=== PATIENT | female | born 1945 | race Caucasian/White ===

== ENCOUNTER → 2020-06-10 | Outpatient (CLI) | payer MEDICARE, OTHER ==
--- NOTE | 2020-06-10 13:51 | DEXAMM ---
INDICATION: M81.0 OSTEOPOROSIS. Status post left hip pinning. COMPARISON: None. TECHNIQUE: Bone density was measured using dual-energy x-ray absorptionmetry (DEXA). FINDINGS: AP SPINE L1-L4 BMD 1.242 g/cm2 Young Adult T-Score 0.4 Age Matched Z-Score 2.2. RT FEMUR, TOTAL BMD 0.725 g/cm2 Young Adult T-Score -2.2 Age Matched Z-Score -0.5. RT NECK BMD 0.737 g/cm2 Young Adult T-Score -2.2 Age Matched Z-Score -0.2. IMPRESSION: There is normal bone density of the spine. There is low bone density of the right hip. FOLLOW-UP: Recommendation for the next bone density exam: 2 years. <Electronically signed by Tavares Valdez > 06/10/20 [id number]
== END ==
LOC: M WHC 12:35
PROVIDERS: ATTEND Internal Medicine
DX: M81.0 Age-related osteoporosis without current pathological fracture (principal)

== ENCOUNTER → 2020-06-10 | Outpatient (CLI) | payer MEDICARE, OTHER ==
--- NOTE | 2020-06-10 14:19 | REPPI ---
INDICATION: UNDIFFERENTIATED INFLAMMATOR ARTHRITIS COMPARISON: None. TECHNIQUE: AP, lateral, bilateral oblique views right and left hand. FINDINGS: Both hands demonstrate moderate osteopenia and mild to moderate osteoarthritic changes with minimal periarticular sclerosis and joint space narrowing at the interphalangeal joints as well as moderate arthritic changes to the wrist including increased sclerosis, osteophytosis and chronic mild subluxation at the 1st carpometacarpal joint as well as increased sclerosis along the radiocarpal surface. Mild soft tissue swelling at the DIP joints (right greater than left) noted without periarticular calcifications or erosive changes. Evidence for peripheral vascular disease noted. IMPRESSION: Osteopenia and arthritic changes as described above. <Electronically signed by Olegario Lopez > 06/10/20 [id number]
--- NOTE | 2020-06-10 14:22 | REPPI ---
INDICATION: UNDIFFERENTIATED INFLAMMATOR ARTHRITIS COMPARISON: None. TECHNIQUE: AP, lateral, bilateral oblique views right and left wrist. FINDINGS: Right wrist demonstrates age-related osteopenia along with increased sclerosis along the radial surface and minimal joint space narrowing. Subtle cortical irregularity and mild chondrocalcinosis at the 1st carpometacarpal joint with periarticular sclerosis and joint space narrowing noted. Evidence for peripheral vascular disease. Left wrist demonstrates age-related osteopenia along with moderate sclerosis at the 1st carpometacarpal joint with cortical irregularity, small osteophytes, chondrocalcinosis. Increased sclerosis and minimal joint space narrowing at the radiocarpal joint line is also identified. Evidence for peripheral vascular disease. IMPRESSION: Osteopenia and moderate relatively symmetric bilateral osteoarthritic degenerative changes. <Electronically signed by Olegario Lopez > 06/10/20 [id number]
--- NOTE | 2020-06-10 14:23 | REPPI ---
INDICATION: UNDIFFERENTIATED INFLAMMATOR ARTHRITIS COMPARISON: None. TECHNIQUE: AP, lateral, bilateral oblique views. FINDINGS: Right ankle demonstrates age-related osteopenia and generalized age-related arthritic changes. Ankle mortise intact. No acute fracture or dislocation. Lateral view demonstrates small calcaneal heel spur. Evidence for peripheral vascular disease noted. Left ankle demonstrates age-related osteopenia and generalized age-related arthritic changes. Ankle mortise intact. No acute fracture or dislocation. Lateral view demonstrates small calcaneal heel spur. Evidence for peripheral vascular disease noted. IMPRESSION: Age-related osteopenia and relatively symmetric age-related degenerative changes. <Electronically signed by Olegario Lopez > 06/10/20 1920
--- NOTE | 2020-06-10 14:25 | REPPI ---
INDICATION: UNDIFFERENTIATED INFLAMMATOR ARTHRITIS COMPARISON: None. TECHNIQUE: AP, lateral, bilateral oblique views right and left foot. FINDINGS: Right foot demonstrates osteopenia and generalized osteoarthritic degenerative changes along with peripheral vascular disease. Small calcaneal heel spur. No evidence for acute or healed injury. Left foot demonstrates osteopenia and generalized osteoarthritic degenerative changes along with peripheral vascular disease. Small calcaneal heel spur. No evidence for acute or healed injury. IMPRESSION: Symmetric age-related osteopenia and generalized age-related osteoarthritic changes. <Electronically signed by Olegario Lopez > 06/10/20 [id number]
== END ==
LOC: M PLAIMG 13:03
PROVIDERS: ATTEND Internal Medicine
DX: M85.871 Other specified disorders of bone density and structure, right ankle and foot (principal); M85.872 Other specified disorders of bone density and structure, left ankle and foot; M77.31 Calcaneal spur, right foot; M77.32 Calcaneal spur, left foot; M85.841 Other specified disorders of bone density and structure, right hand; M85.842 Other specified disorders of bone density and structure, left hand; M85.88 Other specified disorders of bone density and structure, other site; M06.4 Inflammatory polyarthropathy; M81.0 Age-related osteoporosis without current pathological fracture; R76.8 Other specified abnormal immunological findings in serum; H04.123 Dry eye syndrome of bilateral lacrimal glands; Z11.59 Encounter for screening for other viral diseases

== ENCOUNTER → 2020-06-10 | Outpatient (REF) | payer MEDICARE, OTHER ==
[2020-06-10 15:40] LABS: BASO % 0.5 % (0.0-1.0); EOS # 0.2 10^3/uL (0.0-0.5); EOS % 1.8 % (0.0-3.0); HEMATOCRIT 47.4 % (36.0-47.0); HEMOGLOBIN 14.8 g/dl (12.0-15.5); LYMPH # 1.4 10^3/uL (1.5-5.0); LYMPH % 17.1 % (24.0-44.0); MEAN CORPUSCULAR HGB CONC 31.2 g/dl (32.0-36.5); MONO # 0.6 10^3/uL (0.0-0.8); MONO % 6.8 % (0.0-5.0); NEUTROPHILS # 6.1 10^3/uL (1.5-8.5); NEUTROPHILS % 73.4 % (36.0-66.0); PLATELET COUNT, AUTOMATED 230 10^3/uL (150-450); RED BLOOD COUNT 4.94 10^6/uL (4.00-5.40); WHITE BLOOD COUNT 8.3 10^3/uL (4.0-10.0)
[2020-06-10 15:50] LABS: APPEARANCE, URINE HAZY (CLEAR); BACTERIA, URINE AUTO NEGATIVE (NEGATIVE); BILIRUBIN, URINE AUTO NEGATIVE (NEGATIVE); BLOOD, URINE BLOOD 1+ (NEGATIVE); COLOR, URINE STRAW (YELLOW); GLUCOSE, URINE (UA) AUTO 3+ mg/dL (NEGATIVE); KETONE, URINE AUTO NEGATIVE (NEGATIVE); LEUKOCYTE ESTERASE, URINE AUTO 3+ (NEGATIVE); MUCUS, URINE SMALL (NEGATIVE); NITRITE, URINE AUTO NEGATIVE (NEGATIVE); PROTEIN, URINE AUTO NEGATIVE (NEGATIVE); RBC, URINE AUTO 2 /HPF (0-3); SPECIFIC GRAVITY URINE AUTO 1.011 (1.002-1.035); SQUAMOUS EPITHELIAL CELL UR AU 1 /HPF (0-6); UROBILINOGEN, URINE AUTO 0.2 mg/dL (0.0-2.0); WBC, URINE AUTO 107 /HPF (0-3)
[2020-06-10 16:19] LABS: ERYTHROCYTE SEDIMENTATION RATE 10 mm/hr (0-30)
[2020-06-10 16:22] LABS: CREATININE,RANDOM URINE 18.1 MG/DL
[2020-06-10 16:52] LABS: ALBUMIN 3.7 GM/DL (3.2-5.2); ALT/SGPT 31 U/L (12-78); BILIRUBIN,DIRECT 0.2 MG/DL (0.0-0.2); BILIRUBIN,TOTAL 0.7 MG/DL (0.2-1.0); BLOOD UREA NITROGEN 15 MG/DL (7-18); CALCIUM LEVEL 9.6 MG/DL (8.8-10.2); CARBON DIOXIDE LEVEL 31 MEQ/L (21-32); CHLORIDE LEVEL 106 MEQ/L (98-107); COMPLEMENT C3 149 MG/DL (90-180); COMPLEMENT C4 29 MG/DL (10-40); CPK CREATINE PHOSPHOKINASE 96 U/L (26-192); CREATININE FOR GFR 0.65 MG/DL (0.55-1.30); GLOMERULAR FILTRATION RATE > 60.0 (>39); GLUCOSE, FASTING 155 MG/DL (70-100); POTASSIUM SERUM 4.1 MEQ/L (3.5-5.1); RHEUMATOID FACTOR QUANT < 10.0 IU/ML (<15.0); SODIUM LEVEL 140 MEQ/L (136-145); URIC ACID 4.7 MG/DL (2.6-6.0)
[2020-06-10 16:53] LABS: HEPATITIS B SURFACE ANTIBODY NEGATIVE (POSITIVE)
[2020-06-10 17:03] LABS: HEPATITIS B SURFACE ANTIGEN NEGATIVE (NEGATIVE)
[2020-06-10 17:33] LABS: HEPATITIS C VIRUS ABY INDEX 0.1 INDEX (<0.8)
== END ==
LOC: M SFHCRHEU 13:03
PROVIDERS: ATTEND Internal Medicine
DX: R76.8 Other specified abnormal immunological findings in serum (principal); H04.123 Dry eye syndrome of bilateral lacrimal glands; M06.4 Inflammatory polyarthropathy; Z11.59 Encounter for screening for other viral diseases

== ENCOUNTER → 2020-07-28 | Outpatient (REF) | payer MEDICARE, OTHER ==
[2020-07-28 18:01] LABS: CALCIUM LEVEL 9.9 MG/DL (8.8-10.2); MAGNESIUM LEVEL 2.1 MG/DL (1.8-2.4); PHOSPHORUS LEVEL 4.2 MG/DL (2.5-4.9)
[2020-07-28 18:12] LABS: PTH INTACT 46.1 PG/ML (18.5-88.0)
== END ==
LOC: M SFHCRHEU 13:19
PROVIDERS: ATTEND Internal Medicine
DX: M11.20 Other chondrocalcinosis, unspecified site (principal); M81.0 Age-related osteoporosis without current pathological fracture; Z79.899 Other long term (current) drug therapy
CPT/HCPCS: 82310; 82523; 83540; 83735; 83970; 84100; G0463; G0480

== ENCOUNTER 2022-08-03 16:49 | Inpatient (IN) | payer MEDICARE, OTHER ==
[~2022-08-03] VITALS: Ht 149.9 cm; Wt 74.6 kg
[2022-08-03 19:05] VITALS: BP 142/77
[2022-08-03 19:32] LABS: BASO % 0.2 % (0.0-1.0); EOS # 0.1 10^3/uL (0.0-0.5); EOS % 0.6 % (0.0-3.0); HEMATOCRIT 34.9 % (36.0-47.0); HEMOGLOBIN 11.1 g/dl (12.0-15.5); LYMPH # 1.1 10^3/uL (1.5-5.0); LYMPH % 10.3 % (24.0-44.0); MEAN CORPUSCULAR HEMOGLOBIN 28.2 pg (27.0-33.0); MEAN CORPUSCULAR HGB CONC 31.8 g/dl (32.0-36.5); MEAN CORPUSCULAR VOLUME 88.6 fl (80.0-96.0); MONO # 1.1 10^3/uL (0.0-0.8); NEUTROPHILS # 7.9 10^3/uL (1.5-8.5); NEUTROPHILS % 77.6 % (36.0-66.0); PLATELET COUNT, AUTOMATED 252 10^3/uL (150-450); RED BLOOD COUNT 3.94 10^6/uL (4.00-5.40); WHITE BLOOD COUNT 10.2 10^3/uL (4.0-10.0)
[2022-08-03] MEDS: traMADol 50 MG TAB PO PRN (19:40)
[2022-08-03 19:47] LABS: INR 1.13; PROTHROMBIN TIME 14.7 SECONDS (12.5-14.5)
[2022-08-03 19:58] LABS: CPK CREATINE PHOSPHOKINASE 224 U/L (34-145)
[2022-08-03] MEDS ORDERED: NS 1,000 ML IV SCH (20:00)
[2022-08-03 20:03] LABS: ALBUMIN 3.1 G/DL (3.2-5.2); ALKALINE PHOSPHATASE 64 U/L (46-116); ALT/SGPT 26 U/L (7.0-40); AST/SGOT 28 U/L (<34); BILIRUBIN,TOTAL 0.5 MG/DL (0.3-1.2); BLOOD UREA NITROGEN 20 MG/DL (9-23); CALCIUM LEVEL 9.4 MG/DL (8.3-10.6); CARBON DIOXIDE LEVEL 25 MMOL/L (20-31); CHLORIDE LEVEL 103 MMOL/L (98-107); CREATININE FOR GFR 0.91 MG/DL (0.55-1.30); GLOMERULAR FILTRATION RATE > 60.0 (>39); GLUCOSE, FASTING 61 MG/DL (74-106); MB/CK RELATIVE INDEX 0.89 (< OR =4); POTASSIUM SERUM 3.7 MMOL/L (3.5-5.1); SODIUM LEVEL 137 MMOL/L (136-145); TOTAL PROTEIN 6.6 G/DL (5.7-8.2)
[2022-08-03] MEDS ORDERED: MIRALAX *UNIT DOSE* 17GM PACKET PO PRN (20:45)
[2022-08-03] MEDS ORDERED: GLUCAGON INJ 1MG VIAL SC PRN (20:45)
[2022-08-03] MEDS ORDERED: GLUCOSE 4GM CHEW TABLET PO PRN (20:45)
[2022-08-03] MEDS ORDERED: DEXTROSE 50% 50ML SYRINGE IV PRN (20:45)
[2022-08-03] MEDS: INSULIN LISPRO (NovoLOG) PER UNIT SC SCH (21:00)
[2022-08-03 21:32] VITALS: BP 141/55
[2022-08-03] MEDS ORDERED: HYDR200T3 PO (21:33)
[2022-08-03] MEDS ORDERED: OYST500T12 PO (21:33)
[2022-08-03] MEDS ORDERED: JARD1TAB3 PO (21:33)
[2022-08-03] MEDS ORDERED: LEXA1TAB PO (21:33)
[2022-08-03] MEDS ORDERED: D 50CAP2 PO (21:33)
[2022-08-03] MEDS ORDERED: DARI7.5T11 PO (21:33)
[2022-08-03] MEDS ORDERED: SIMV20TA22 PO (21:33)
[2022-08-03] MEDS ORDERED: XALA0.007 OU (21:33)
[2022-08-03] MEDS ORDERED: LOSA50TA28 PO (21:33)
[2022-08-03] MEDS ORDERED: LANTINJ4 INJ (21:33)
[2022-08-03] MEDS ORDERED: ACID1TAB PO (21:34)
[2022-08-03] MEDS ORDERED: VITAE40CA PO (21:34)
[2022-08-03] MEDS ORDERED: ASPI325T49 PO (21:34)
[2022-08-03] MEDS ORDERED: MICR1TAB5 PO (21:35)
[2022-08-03] MEDS ORDERED: HOME MED LIST COMPLETE! XX SCH (21:40)
[2022-08-03] MEDS ORDERED: BUPIVACAINE HCL 0.25% 10ML VIAL SC ONE (22:00)
[2022-08-03] MEDS ORDERED: LIDOCAINE 1% SDV 5ML VIAL SC ONE (22:00)
[2022-08-03] MEDS: HYDROXYCHLOROQUINE 200 MG TAB PO SCH (23:22)
[2022-08-03] MEDS: SIMVASTATIN 20 MG TAB PO SCH (23:22)
[2022-08-03] MEDS: LATANOPROST 0.005% OPHTH SOLN 2.5 ML OU SCH (23:23)
[2022-08-03] MEDS ORDERED: LOSARTAN 50MG TABLET PO ONE (23:40)
[2022-08-04] MEDS: oxyBUTYnin *DITROPAN XL* 5 MG TABCR PO SCH ×2 (00:06→20:12)
[2022-08-04] MEDS: traMADol 50 MG TAB PO PRN ×5 (00:42→22:57)
[2022-08-04 06:00] VITALS: BP 139/56
[2022-08-04] MEDS ORDERED: FOSFOMYCIN TROMETHAMINE 3 GM POWDER PACKET (MONUROL) PO ONE (06:00)
[2022-08-04 07:53] LABS: BASO % 0.3 % (0.0-1.0); EOS # 0.2 10^3/uL (0.0-0.5); EOS % 2.3 % (0.0-3.0); HEMATOCRIT 33.5 % (36.0-47.0); HEMOGLOBIN 10.4 g/dl (12.0-15.5); LYMPH % 12.9 % (24.0-44.0); MEAN CORPUSCULAR HEMOGLOBIN 27.9 pg (27.0-33.0); MEAN CORPUSCULAR VOLUME 89.8 fl (80.0-96.0); MONO # 1.1 10^3/uL (0.0-0.8); MONO % 13.9 % (2.0-8.0); NEUTROPHILS # 5.5 10^3/uL (1.5-8.5); NEUTROPHILS % 70.1 % (36.0-66.0); PLATELET COUNT, AUTOMATED 231 10^3/uL (150-450); RED BLOOD COUNT 3.73 10^6/uL (4.00-5.40); WHITE BLOOD COUNT 7.9 10^3/uL (4.0-10.0)
[2022-08-04] MEDS ORDERED: RAMELTEON 8 MG TAB (ROZEREM) PO PRN (08:25)
[2022-08-04] MEDS: HYDROXYCHLOROQUINE 200 MG TAB PO SCH ×2 (08:52→20:12)
[2022-08-04] MEDS: ESCITALOPRAM OXALATE 10 MG TAB (LEXAPRO) PO SCH (08:53)
[2022-08-04] MEDS: LOSARTAN 50MG TABLET PO SCH (08:57)
[2022-08-04] MEDS: NYSTATIN 100,000 UNITS/GM TOPICAL PWD 15GM TOP SCH ×2 (08:59→20:13)
[2022-08-04] MEDS: INSULIN LISPRO (NovoLOG) PER UNIT SC SCH ×4 (08:59→20:12)
[2022-08-04 13:59] VITALS: BP 121/56
[2022-08-04] MEDS: SIMVASTATIN 20 MG TAB PO SCH (20:12)
[2022-08-04] MEDS: ACETAMINOPHEN TAB 650MG DOSE (2X325MG) PO PRN (20:12)
[2022-08-04] MEDS: LATANOPROST 0.005% OPHTH SOLN 2.5 ML OU SCH (20:13)
[2022-08-04 22:00] VITALS: BP 122/56
[2022-08-05] VITALS (8 sets, daily range): BP systolic 116–138; BP diastolic 51–61
[2022-08-05] MEDS: ACETAMINOPHEN TAB 650MG DOSE (2X325MG) PO PRN (00:50)
[2022-08-05 06:38] LABS: BASO % 0.4 % (0.0-1.0); EOS # 0.3 10^3/uL (0.0-0.5); EOS % 4.5 % (0.0-3.0); HEMATOCRIT 31.1 % (36.0-47.0); HEMOGLOBIN 9.7 g/dl (12.0-15.5); LYMPH # 1.2 10^3/uL (1.5-5.0); LYMPH % 17.1 % (24.0-44.0); MEAN CORPUSCULAR HEMOGLOBIN 27.8 pg (27.0-33.0); MEAN CORPUSCULAR HGB CONC 31.2 g/dl (32.0-36.5); MEAN CORPUSCULAR VOLUME 89.1 fl (80.0-96.0); MONO # 1.1 10^3/uL (0.0-0.8); MONO % 15.7 % (2.0-8.0); NEUTROPHILS # 4.2 10^3/uL (1.5-8.5); NEUTROPHILS % 61.9 % (36.0-66.0); PLATELET COUNT, AUTOMATED 226 10^3/uL (150-450); RED BLOOD COUNT 3.49 10^6/uL (4.00-5.40); WHITE BLOOD COUNT 6.8 10^3/uL (4.0-10.0)
[2022-08-05 07:06] LABS: CPK CREATINE PHOSPHOKINASE 205 U/L (34-145)
[2022-08-05 07:08] LABS: ALBUMIN 2.6 G/DL (3.2-5.2); ALKALINE PHOSPHATASE 58 U/L (46-116); ALT/SGPT 24 U/L (7.0-40); AST/SGOT 23 U/L (<34); BILIRUBIN,TOTAL 0.5 MG/DL (0.3-1.2); BLOOD UREA NITROGEN 21 MG/DL (9-23); CALCIUM LEVEL 8.2 MG/DL (8.3-10.6); CARBON DIOXIDE LEVEL 25 MMOL/L (20-31); CHLORIDE LEVEL 102 MMOL/L (98-107); CREATININE FOR GFR 0.81 MG/DL (0.55-1.30); GLOMERULAR FILTRATION RATE > 60.0 (>39); GLUCOSE, FASTING 121 MG/DL (74-106); MAGNESIUM LEVEL 1.7 MG/DL (1.8-2.4); POTASSIUM SERUM 3.9 MMOL/L (3.5-5.1); SODIUM LEVEL 135 MMOL/L (136-145); TOTAL PROTEIN 5.7 G/DL (5.7-8.2)
[2022-08-05] MEDS: INSULIN LISPRO (NovoLOG) PER UNIT SC SCH ×4 (07:30→21:14)
[2022-08-05] MEDS ORDERED: propofoL 200 MG/20 ML VIAL As Ordered ONE (08:18)
[2022-08-05] MEDS ORDERED: MIDAZOLAM INJ 2MG/2ML VIAL As Ordered ONE (08:18)
[2022-08-05] MEDS ORDERED: fentaNYL 100 MCG/2 ML INJECTION As Ordered ONE (08:18)
[2022-08-05] MEDS ORDERED: ONDANSETRON 4MG 2ML VIAL As Ordered ONE (08:18)
[2022-08-05] MEDS ORDERED: LIDOCAINE 2% 100MG/5ML SDV (FOR ANES.) As Ordered ONE (08:18)
[2022-08-05] MEDS ORDERED: ROPIvacaine 0.5% 30ML VIAL As Ordered ONE (08:23)
[2022-08-05] MEDS ORDERED: ROPIvacaine 0.5% 30ML VIAL PN ONE (08:25)
[2022-08-05] MEDS ORDERED: MIDAZOLAM INJ 2MG/2ML VIAL IV PRN (08:25)
[2022-08-05] MEDS ORDERED: LIDOCAINE 1% SDV 5ML VIAL PN ONE (08:25)
[2022-08-05] MEDS ORDERED: fentaNYL 100 MCG/2 ML INJECTION IV PRN ×2 (08:25→11:30)
[2022-08-05] MEDS ORDERED: ROCURONIUM BROMIDE 50MG/5ML VIAL As Ordered ONE (08:34)
[2022-08-05] MEDS ORDERED: SUGAMMADEX SODIUM 500 MG/5 ML VIAL (BRIDION) As Ordered ONE (08:34)
[2022-08-05] MEDS ORDERED: ceFAZolin 2 GM/D5W 50 ML IV BAG As Ordered ONE (08:36)
[2022-08-05] MEDS ORDERED: TRANEXAMIC ACID 100 MG/ML 10ML VIAL As Ordered ONE (08:36)
[2022-08-05] MEDS ORDERED: ACETAMINOPHEN 1000MG 100ML IV BAG As Ordered ONE (09:58)
[2022-08-05] MEDS ORDERED: LR 1,000 ML IV SCH (11:30)
[2022-08-05] MEDS ORDERED: ONDANSETRON 4MG 2ML VIAL IV PRN (11:30)
[2022-08-05] MEDS ORDERED: oxyCODONE 5MG TAB PO PRN (11:30)
[2022-08-05] MEDS ORDERED: HYDROMORPHONE HCL 0.5 MG/ 0.5 ML SYRINGE IV PRN (11:30)
[2022-08-05] MEDS: ESCITALOPRAM OXALATE 10 MG TAB (LEXAPRO) PO SCH (12:54)
[2022-08-05] MEDS: LOSARTAN 50MG TABLET PO SCH (12:56)
[2022-08-05] MEDS: NYSTATIN 100,000 UNITS/GM TOPICAL PWD 15GM TOP SCH ×2 (12:56→21:14)
[2022-08-05] MEDS: HYDROXYCHLOROQUINE 200 MG TAB PO SCH ×2 (12:56→21:13)
[2022-08-05] MEDS ORDERED: MAGNESIUM OXIDE 400MG TAB (MAG-OX) PO ONE (13:15)
[2022-08-05] MEDS: ceFAZolin SOD 2 GM in IV 1 EA IV SCH (17:14)
[2022-08-05] MEDS: SIMVASTATIN 20 MG TAB PO SCH (21:13)
[2022-08-05] MEDS: oxyBUTYnin *DITROPAN XL* 5 MG TABCR PO SCH (21:13)
[2022-08-05] MEDS: LATANOPROST 0.005% OPHTH SOLN 2.5 ML OU SCH (21:15)
[2022-08-06] MEDS: ceFAZolin SOD 2 GM in IV 1 EA IV SCH ×2 (01:31→08:06)
[2022-08-06 02:00] VITALS: BP 134/55
[2022-08-06] MEDS ORDERED: FLUTICASONE PROP 0.05% NASAL SPRAY 16 GM (FLONASE) NARES PRN (02:05)
[2022-08-06] MEDS: guaiFENesin ER 600 MG TAB PO PRN ×2 (02:20→14:04)
[2022-08-06 06:00] VITALS: BP 121/50
[2022-08-06 06:41] LABS: BASO % 0.1 % (0.0-1.0); HEMATOCRIT 31.9 % (36.0-47.0); HEMOGLOBIN 9.9 g/dl (12.0-15.5); LYMPH # 0.7 10^3/uL (1.5-5.0); LYMPH % 5.3 % (24.0-44.0); MEAN CORPUSCULAR HEMOGLOBIN 27.3 pg (27.0-33.0); MEAN CORPUSCULAR VOLUME 88.1 fl (80.0-96.0); MONO # 0.9 10^3/uL (0.0-0.8); MONO % 7.3 % (2.0-8.0); NEUTROPHILS # 10.7 10^3/uL (1.5-8.5); NEUTROPHILS % 86.9 % (36.0-66.0); PLATELET COUNT, AUTOMATED 252 10^3/uL (150-450); RED BLOOD COUNT 3.62 10^6/uL (4.00-5.40); WHITE BLOOD COUNT 12.4 10^3/uL (4.0-10.0)
[2022-08-06 07:09] LABS: CPK CREATINE PHOSPHOKINASE 127 U/L (34-145)
[2022-08-06 07:26] LABS: ALBUMIN 2.6 G/DL (3.2-5.2); ALKALINE PHOSPHATASE 69 U/L (46-116); ALT/SGPT 21 U/L (7.0-40); AST/SGOT 18 U/L (<34); BILIRUBIN,TOTAL 0.3 MG/DL (0.3-1.2); BLOOD UREA NITROGEN 17 MG/DL (9-23); CALCIUM LEVEL 8.4 MG/DL (8.3-10.6); CARBON DIOXIDE LEVEL 26 MMOL/L (20-31); CHLORIDE LEVEL 102 MMOL/L (98-107); CREATININE FOR GFR 0.71 MG/DL (0.55-1.30); GLOMERULAR FILTRATION RATE > 60.0 (>39); GLUCOSE, FASTING 218 MG/DL (74-106); MAGNESIUM LEVEL 1.9 MG/DL (1.8-2.4); POTASSIUM SERUM 4.5 MMOL/L (3.5-5.1); SODIUM LEVEL 136 MMOL/L (136-145)
[2022-08-06] MEDS: INSULIN LISPRO (NovoLOG) PER UNIT SC SCH ×4 (08:06→21:00)
[2022-08-06] MEDS: LOSARTAN 50MG TABLET PO SCH (08:06)
[2022-08-06] MEDS: HYDROXYCHLOROQUINE 200 MG TAB PO SCH ×2 (08:07→21:43)
[2022-08-06] MEDS: ENOXAPARIN 40MG/0.4ML SYRINGE (J1650 PER 10MG) SC SCH (08:07)
[2022-08-06] MEDS: ESCITALOPRAM OXALATE 10 MG TAB (LEXAPRO) PO SCH (08:07)
[2022-08-06] MEDS: NYSTATIN 100,000 UNITS/GM TOPICAL PWD 15GM TOP SCH ×2 (08:08→21:46)
[2022-08-06 12:00] VITALS: BP 102/53
[2022-08-06] MEDS: traMADol 50 MG TAB PO PRN ×2 (16:16→19:52)
[2022-08-06 20:56] VITALS: BP 111/53
[2022-08-06] MEDS: oxyBUTYnin *DITROPAN XL* 5 MG TABCR PO SCH (21:42)
[2022-08-06] MEDS: ACETAMINOPHEN TAB 650MG DOSE (2X325MG) PO PRN (21:42)
[2022-08-06] MEDS: SIMVASTATIN 20 MG TAB PO SCH (21:43)
[2022-08-06] MEDS: LEVEMIR (INSULIN DETEMIR) 1 UNITS/0.01ML SC SCH (21:45)
[2022-08-06] MEDS: LATANOPROST 0.005% OPHTH SOLN 2.5 ML OU SCH (21:46)
[2022-08-07 06:01] VITALS: BP 116/54
[2022-08-07 06:23] LABS: BASO % 0.4 % (0.0-1.0); EOS # 0.2 10^3/uL (0.0-0.5); EOS % 1.6 % (0.0-3.0); HEMATOCRIT 30.7 % (36.0-47.0); HEMOGLOBIN 9.5 g/dl (12.0-15.5); LYMPH # 1.6 10^3/uL (1.5-5.0); LYMPH % 14.5 % (24.0-44.0); MEAN CORPUSCULAR HEMOGLOBIN 27.7 pg (27.0-33.0); MEAN CORPUSCULAR HGB CONC 30.9 g/dl (32.0-36.5); MEAN CORPUSCULAR VOLUME 89.5 fl (80.0-96.0); MONO # 1.1 10^3/uL (0.0-0.8); MONO % 9.3 % (2.0-8.0); NEUTROPHILS # 8.3 10^3/uL (1.5-8.5); NEUTROPHILS % 73.4 % (36.0-66.0); PLATELET COUNT, AUTOMATED 261 10^3/uL (150-450); RED BLOOD COUNT 3.43 10^6/uL (4.00-5.40); WHITE BLOOD COUNT 11.3 10^3/uL (4.0-10.0)
[2022-08-07 06:56] LABS: ALBUMIN 2.7 G/DL (3.2-5.2); ALKALINE PHOSPHATASE 64 U/L (46-116); ALT/SGPT 14 U/L (7.0-40); AST/SGOT 17 U/L (<34); BILIRUBIN,TOTAL 0.5 MG/DL (0.3-1.2); BLOOD UREA NITROGEN 19 MG/DL (9-23); CALCIUM LEVEL 8.5 MG/DL (8.3-10.6); CARBON DIOXIDE LEVEL 28 MMOL/L (20-31); CHLORIDE LEVEL 103 MMOL/L (98-107); CREATININE FOR GFR 0.75 MG/DL (0.55-1.30); GLOMERULAR FILTRATION RATE > 60.0 (>39); GLUCOSE, FASTING 110 MG/DL (74-106); MAGNESIUM LEVEL 1.8 MG/DL (1.8-2.4); POTASSIUM SERUM 4.3 MMOL/L (3.5-5.1); SODIUM LEVEL 137 MMOL/L (136-145); TOTAL PROTEIN 5.8 G/DL (5.7-8.2)
[2022-08-07] MEDS: INSULIN LISPRO (NovoLOG) PER UNIT SC SCH ×5 (07:30→20:35)
[2022-08-07 08:00] VITALS: BP 136/64
[2022-08-07] MEDS: ENOXAPARIN 40MG/0.4ML SYRINGE (J1650 PER 10MG) SC SCH (10:05)
[2022-08-07] MEDS: HYDROXYCHLOROQUINE 200 MG TAB PO SCH ×2 (10:07→20:58)
[2022-08-07] MEDS: traMADol 50 MG TAB PO PRN (10:07)
[2022-08-07] MEDS: LOSARTAN 50MG TABLET PO SCH (10:08)
[2022-08-07] MEDS: ESCITALOPRAM OXALATE 10 MG TAB (LEXAPRO) PO SCH (10:08)
[2022-08-07] MEDS: NYSTATIN 100,000 UNITS/GM TOPICAL PWD 15GM TOP SCH ×2 (10:09→20:59)
[2022-08-07] MEDS: CHOLESTYRAMINE 4GM PWD PKT PO SCH ×3 (10:36→20:58)
[2022-08-07 14:00] VITALS: BP 111/55
[2022-08-07] MEDS: oxyBUTYnin *DITROPAN XL* 5 MG TABCR PO SCH (20:58)
[2022-08-07] MEDS: SIMVASTATIN 20 MG TAB PO SCH (20:58)
[2022-08-07] MEDS: LATANOPROST 0.005% OPHTH SOLN 2.5 ML OU SCH (20:59)
[2022-08-07] MEDS: LEVEMIR (INSULIN DETEMIR) 1 UNITS/0.01ML SC SCH (20:59)
[2022-08-07] MEDS ORDERED: ASPIRIN 325 MG TAB PO SCH (21:00)
[2022-08-07 22:00] VITALS: BP 124/60
[2022-08-08 05:58] LABS: BASO # 0.1 10^3/uL (0.0-0.2); BASO % 0.5 % (0.0-1.0); EOS # 0.4 10^3/uL (0.0-0.5); EOS % 4.3 % (0.0-3.0); HEMATOCRIT 31.4 % (36.0-47.0); HEMOGLOBIN 9.7 g/dl (12.0-15.5); LYMPH # 1.4 10^3/uL (1.5-5.0); LYMPH % 14.2 % (24.0-44.0); MEAN CORPUSCULAR HEMOGLOBIN 27.6 pg (27.0-33.0); MEAN CORPUSCULAR HGB CONC 30.9 g/dl (32.0-36.5); MEAN CORPUSCULAR VOLUME 89.2 fl (80.0-96.0); MONO # 0.9 10^3/uL (0.0-0.8); MONO % 9.3 % (2.0-8.0); NEUTROPHILS % 70.8 % (36.0-66.0); PLATELET COUNT, AUTOMATED 288 10^3/uL (150-450); RED BLOOD COUNT 3.52 10^6/uL (4.00-5.40); WHITE BLOOD COUNT 9.9 10^3/uL (4.0-10.0)
[2022-08-08 06:11] VITALS: BP 128/55
[2022-08-08 06:24] LABS: ALBUMIN 2.5 G/DL (3.2-5.2); ALKALINE PHOSPHATASE 65 U/L (46-116); ALT/SGPT 12 U/L (7.0-40); AST/SGOT 13 U/L (<34); BILIRUBIN,TOTAL 0.5 MG/DL (0.3-1.2); BLOOD UREA NITROGEN 15 MG/DL (9-23); CALCIUM LEVEL 8.5 MG/DL (8.3-10.6); CARBON DIOXIDE LEVEL 27 MMOL/L (20-31); CHLORIDE LEVEL 105 MMOL/L (98-107); CREATININE FOR GFR 0.68 MG/DL (0.55-1.30); GLOMERULAR FILTRATION RATE > 60.0 (>39); GLUCOSE, FASTING 114 MG/DL (74-106); MAGNESIUM LEVEL 1.9 MG/DL (1.8-2.4); POTASSIUM SERUM 4.4 MMOL/L (3.5-5.1); SODIUM LEVEL 139 MMOL/L (136-145); TOTAL PROTEIN 5.8 G/DL (5.7-8.2)
[2022-08-08 08:00] VITALS: BP 136/56
[2022-08-08] MEDS: ENOXAPARIN 40MG/0.4ML SYRINGE (J1650 PER 10MG) SC SCH (09:07)
[2022-08-08] MEDS: INSULIN LISPRO (NovoLOG) PER UNIT SC SCH ×2 (09:07→12:17)
[2022-08-08 09:08] VITALS: BP 136/56
[2022-08-08] MEDS: LOSARTAN 50MG TABLET PO SCH (09:08)
[2022-08-08] MEDS: HYDROXYCHLOROQUINE 200 MG TAB PO SCH (09:08)
[2022-08-08] MEDS: ESCITALOPRAM OXALATE 10 MG TAB (LEXAPRO) PO SCH (09:08)
[2022-08-08] MEDS: CHOLESTYRAMINE 4GM PWD PKT PO SCH (09:08)
[2022-08-08] MEDS: NYSTATIN 100,000 UNITS/GM TOPICAL PWD 15GM TOP SCH (09:09)
[2022-08-08] MEDS ORDERED: NYST10006 TOP (11:03)
[2022-08-08] MEDS ORDERED: TRAM50TA2 PO (11:03)
[2022-08-08] MEDS ORDERED: ACET1TAB55 PO (11:03)
[2022-08-08] MEDS ORDERED: FLUTISP NARES (11:05)
[2022-08-08] MEDS ORDERED: MUCI600T31 PO (11:05)
[2022-08-08 14:00] VITALS: BP 142/54
[2022-08-08] MEDS: ACETAMINOPHEN TAB 650MG DOSE (2X325MG) PO PRN (14:23)
[2022-08-08 15:00] VITALS: BP 124/70
== END 2022-08-08 14:50 | DRG 493 ==
LOC: M MS5PR 18:50
PROVIDERS: ADMIT General Practice; ATTEND Internal Medicine Nephrology
PROC: 0QSJ04Z Reposition Right Fibula with Internal Fixation Device, Open Approach (ICD-10-PCS; principal; 2022-08-03)
DX: S82.831A Other fracture of upper and lower end of right fibula, initial encounter for closed fracture (principal); M62.82 Rhabdomyolysis; I48.92 Unspecified atrial flutter; J84.9 Interstitial pulmonary disease, unspecified; I10 Essential (primary) hypertension; M35.00 Sjogren syndrome, unspecified; E11.9 Type 2 diabetes mellitus without complications; M06.9 Rheumatoid arthritis, unspecified; M81.0 Age-related osteoporosis without current pathological fracture; I48.91 Unspecified atrial fibrillation; E78.5 Hyperlipidemia, unspecified; K21.9 Gastro-esophageal reflux disease without esophagitis; E21.3 Hyperparathyroidism, unspecified; Z95.0 Presence of cardiac pacemaker; G47.33 Obstructive sleep apnea (adult) (pediatric); M19.90 Unspecified osteoarthritis, unspecified site; H40.9 Unspecified glaucoma; R82.71 Bacteriuria; Z79.4 Long term (current) use of insulin; F41.9 Anxiety disorder, unspecified; F32.A Depression, unspecified; R19.7 Diarrhea, unspecified; Z88.5 Allergy status to narcotic agent; Z88.8 Allergy status to other drugs, medicaments and biological substances; Z79.899 Other long term (current) drug therapy; Z79.82 Long term (current) use of aspirin; W18.30XA Fall on same level, unspecified, initial encounter; Y92.009 Unspecified place in unspecified non-institutional (private) residence as the place of occurrence of the external cause

== ENCOUNTER 2022-08-08 11:52 | Inpatient (IN) | payer MEDICARE, OTHER ==
[~2022-08-08] VITALS: Ht 149.9 cm; Wt 76.9 kg
[~2022-08-08 11:52] MED LIST: ACET1TAB55 PO; ACID1TAB PO; ASPI325T49 PO; D 50CAP2 PO; DARI7.5T11 PO; FLUT50SP17 NARES; HYDR200T3 PO; JARD1TAB3 PO; LANTINJ4 INJ; LEXA1TAB PO; LOSA50TA28 PO; MICR1TAB5 PO; MUCI600T31 PO; NYST10006 TOP; OYST500T12 PO; SIMV20TA22 PO; TRAM50TA2 PO; VITAE40CA PO; XALA0.007 OU
[2022-08-08 14:50] VITALS: BP 124/70
[2022-08-08] MEDS ORDERED: RAMELTEON 8 MG TAB (ROZEREM) PO PRN (14:55)
[2022-08-08] MEDS ORDERED: DEXTROSE 50% 50ML SYRINGE IV PRN (14:55)
[2022-08-08] MEDS ORDERED: BISACODYL 10MG SUPP PR PRN (14:55)
[2022-08-08] MEDS ORDERED: GLUCAGON INJ 1MG VIAL SC PRN (14:55)
[2022-08-08] MEDS ORDERED: GLUCOSE 4GM CHEW TABLET PO PRN (14:55)
[2022-08-08] MEDS ORDERED: traMADol 50 MG TAB PO PRN (14:55)
[2022-08-08] MEDS ORDERED: ONDANSETRON 4MG TAB PO PRN (14:55)
[2022-08-08] MEDS: REMEDY PHYTOPLEX Z-GUARD PASTE 113GM TUBE (FROM STOREROOM PRODUCT) TOP SCH ×2 (16:00→21:00)
[2022-08-08] MEDS: INSULIN LISPRO (NovoLOG) PER UNIT SC SCH ×2 (17:55→21:00)
[2022-08-08] MEDS: ACETAMINOPHEN 500 MG TAB PO SCH ×2 (17:55→21:05)
[2022-08-08 20:00] VITALS: BP 140/65
[2022-08-08] MEDS: COMBIVENT RESPIMAT 100-20MCG INHALER 4GM INH SCH (20:27)
[2022-08-08] MEDS: FLUTICASONE PROP 0.05% NASAL SPRAY 16 GM (FLONASE) NARES SCH (21:00)
[2022-08-08] MEDS: NYSTATIN 100,000 UNITS/GM TOPICAL PWD 15GM TOP SCH (21:03)
[2022-08-08] MEDS: LATANOPROST 0.005% OPHTH SOLN 2.5 ML OU SCH (21:03)
[2022-08-08] MEDS: CHOLESTYRAMINE 4GM PWD PKT PO SCH (21:04)
[2022-08-08] MEDS: DOCUSATE SODIUM 100MG CAPSULE PO SCH (21:05)
[2022-08-08] MEDS: oxyBUTYnin *DITROPAN XL* 5 MG TABCR PO SCH (21:05)
[2022-08-08] MEDS: SENNA 8.6 MG TAB (SENOKOT) PO SCH (21:05)
[2022-08-08] MEDS: guaiFENesin ER 600 MG TAB PO SCH (21:06)
[2022-08-08] MEDS: SIMVASTATIN 20 MG TAB PO SCH (21:06)
[2022-08-08] MEDS: ASPIRIN ENTERIC 325MG TAB PO SCH (21:06)
[2022-08-08] MEDS: HYDROXYCHLOROQUINE 200 MG TAB PO SCH (21:06)
[2022-08-08] MEDS: LEVEMIR (INSULIN DETEMIR) 1 UNITS/0.01ML SC SCH (21:07)
[2022-08-09 05:10] VITALS: BP 153/72
[2022-08-09 06:14] LABS: BASO % 0.4 % (0.0-1.0); EOS # 0.5 10^3/uL (0.0-0.5); EOS % 5.4 % (0.0-3.0); HEMATOCRIT 30.4 % (36.0-47.0); HEMOGLOBIN 9.5 g/dl (12.0-15.5); LYMPH # 1.4 10^3/uL (1.5-5.0); LYMPH % 14.1 % (24.0-44.0); MEAN CORPUSCULAR HEMOGLOBIN 27.9 pg (27.0-33.0); MEAN CORPUSCULAR HGB CONC 31.3 g/dl (32.0-36.5); MEAN CORPUSCULAR VOLUME 89.1 fl (80.0-96.0); MONO # 0.8 10^3/uL (0.0-0.8); MONO % 8.5 % (2.0-8.0); NEUTROPHILS # 6.8 10^3/uL (1.5-8.5); NEUTROPHILS % 70.5 % (36.0-66.0); PLATELET COUNT, AUTOMATED 312 10^3/uL (150-450); RED BLOOD COUNT 3.41 10^6/uL (4.00-5.40); WHITE BLOOD COUNT 9.7 10^3/uL (4.0-10.0)
[2022-08-09 06:50] LABS: ALBUMIN 2.5 G/DL (3.2-5.2); ALKALINE PHOSPHATASE 67 U/L (46-116); ALT/SGPT 11 U/L (7.0-40); AST/SGOT 13 U/L (<34); BILIRUBIN,TOTAL 0.5 MG/DL (0.3-1.2); BLOOD UREA NITROGEN 12 MG/DL (9-23); CALCIUM LEVEL 8.6 MG/DL (8.3-10.6); CARBON DIOXIDE LEVEL 26 MMOL/L (20-31); CHLORIDE LEVEL 108 MMOL/L (98-107); CREATININE FOR GFR 0.63 MG/DL (0.55-1.30); GLOMERULAR FILTRATION RATE > 60.0 (>39); GLUCOSE, FASTING 69 MG/DL (74-106); SODIUM LEVEL 141 MMOL/L (136-145); TOTAL PROTEIN 5.6 G/DL (5.7-8.2)
[2022-08-09] MEDS: INSULIN LISPRO (NovoLOG) PER UNIT SC SCH ×4 (07:30→20:03)
[2022-08-09] MEDS: COMBIVENT RESPIMAT 100-20MCG INHALER 4GM INH SCH ×3 (07:41→20:04)
[2022-08-09] MEDS: ESCITALOPRAM OXALATE 10 MG TAB (LEXAPRO) PO SCH (10:16)
[2022-08-09] MEDS: ACETAMINOPHEN 500 MG TAB PO SCH (10:16)
[2022-08-09] MEDS: DOCUSATE SODIUM 100MG CAPSULE PO SCH ×2 (10:17→20:54)
[2022-08-09] MEDS: CHOLESTYRAMINE 4GM PWD PKT PO SCH ×2 (10:17→20:46)
[2022-08-09] MEDS: ENOXAPARIN 40MG/0.4ML SYRINGE (J1650 PER 10MG) SC SCH (10:17)
[2022-08-09] MEDS: PANTOPRAZOLE 40MG TAB (PROTONIX) PO SCH (10:17)
[2022-08-09] MEDS: HYDROXYCHLOROQUINE 200 MG TAB PO SCH ×2 (10:17→20:45)
[2022-08-09] MEDS: guaiFENesin ER 600 MG TAB PO SCH ×2 (10:17→20:45)
[2022-08-09] MEDS: FLUTICASONE PROP 0.05% NASAL SPRAY 16 GM (FLONASE) NARES SCH ×2 (10:18→20:55)
[2022-08-09] MEDS: LOSARTAN 50MG TABLET PO SCH (10:20)
[2022-08-09] MEDS: NYSTATIN 100,000 UNITS/GM TOPICAL PWD 15GM TOP SCH ×2 (10:21→20:46)
[2022-08-09] MEDS: REMEDY PHYTOPLEX Z-GUARD PASTE 113GM TUBE (FROM STOREROOM PRODUCT) TOP SCH ×3 (10:21→20:57)
[2022-08-09 14:00] VITALS: BP 130/62
[2022-08-09] MEDS: ACETAMINOPHEN 650MG ER TAB (TYLENOL ARTHRITIS) PO SCH ×2 (15:03→22:01)
[2022-08-09] MEDS: GABAPENTIN 100 MG CAP PO SCH ×2 (15:03→20:45)
[2022-08-09 20:00] VITALS: BP 140/48
[2022-08-09] MEDS: oxyBUTYnin *DITROPAN XL* 5 MG TABCR PO SCH (20:45)
[2022-08-09] MEDS: ASPIRIN ENTERIC 325MG TAB PO SCH (20:45)
[2022-08-09] MEDS: SIMVASTATIN 20 MG TAB PO SCH (20:45)
[2022-08-09] MEDS: LEVEMIR (INSULIN DETEMIR) 1 UNITS/0.01ML SC SCH (20:46)
[2022-08-09] MEDS: LATANOPROST 0.005% OPHTH SOLN 2.5 ML OU SCH (20:46)
[2022-08-09] MEDS: SENNA 8.6 MG TAB (SENOKOT) PO SCH (20:55)
[2022-08-10] MEDS: ACETAMINOPHEN 650MG ER TAB (TYLENOL ARTHRITIS) PO SCH ×3 (05:14→20:32)
[2022-08-10 06:00] VITALS: BP 162/71
[2022-08-10 06:30] LABS: APPEARANCE, URINE TURBID (CLEAR); BACTERIA, URINE AUTO NEGATIVE (NEGATIVE); BILIRUBIN, URINE AUTO NEGATIVE (NEGATIVE); BLOOD, URINE BLOOD 1+ (NEGATIVE); COLOR, URINE YELLOW (YELLOW); GLUCOSE, URINE (UA) AUTO NEGATIVE (NEGATIVE); KETONE, URINE AUTO NEGATIVE (NEGATIVE); LEUKOCYTE ESTERASE, URINE AUTO 3+ (NEGATIVE); NITRITE, URINE AUTO NEGATIVE (NEGATIVE); PROTEIN, URINE AUTO 1+ mg/dL (NEGATIVE); RBC, URINE AUTO 94 /HPF (0-3); SPECIFIC GRAVITY URINE AUTO 1.005 (1.002-1.035); SQUAMOUS EPITHELIAL CELL UR AU 2 /HPF (0-6); UROBILINOGEN, URINE AUTO 0.2 mg/dL (0.0-2.0); WBC, URINE AUTO TNTC /HPF (0-3)
[2022-08-10] MEDS: COMBIVENT RESPIMAT 100-20MCG INHALER 4GM INH SCH ×3 (07:30→19:57)
[2022-08-10] MEDS: INSULIN LISPRO (NovoLOG) PER UNIT SC SCH ×4 (07:30→20:28)
[2022-08-10] MEDS: FLUTICASONE PROP 0.05% NASAL SPRAY 16 GM (FLONASE) NARES SCH ×2 (09:00→20:29)
[2022-08-10] MEDS: REMEDY PHYTOPLEX Z-GUARD PASTE 113GM TUBE (FROM STOREROOM PRODUCT) TOP SCH ×3 (09:00→20:29)
[2022-08-10] MEDS: DOCUSATE SODIUM 100MG CAPSULE PO SCH ×2 (09:18→20:28)
[2022-08-10] MEDS: ENOXAPARIN 40MG/0.4ML SYRINGE (J1650 PER 10MG) SC SCH (09:18)
[2022-08-10] MEDS: CHOLESTYRAMINE 4GM PWD PKT PO SCH ×2 (09:18→20:28)
[2022-08-10] MEDS: LOSARTAN 50MG TABLET PO SCH (09:18)
[2022-08-10] MEDS: guaiFENesin ER 600 MG TAB PO SCH ×2 (09:18→20:27)
[2022-08-10] MEDS: PANTOPRAZOLE 40MG TAB (PROTONIX) PO SCH (09:18)
[2022-08-10] MEDS: ESCITALOPRAM OXALATE 10 MG TAB (LEXAPRO) PO SCH (09:18)
[2022-08-10] MEDS: GABAPENTIN 100 MG CAP PO SCH ×3 (09:18→20:27)
[2022-08-10] MEDS: HYDROXYCHLOROQUINE 200 MG TAB PO SCH ×2 (09:18→20:28)
[2022-08-10] MEDS: NYSTATIN 100,000 UNITS/GM TOPICAL PWD 15GM TOP SCH ×2 (09:19→20:29)
[2022-08-10 09:20] LABS: BASO # 0.1 10^3/uL (0.0-0.2); BASO % 0.5 % (0.0-1.0); EOS # 0.4 10^3/uL (0.0-0.5); EOS % 3.9 % (0.0-3.0); HEMATOCRIT 35.6 % (36.0-47.0); LYMPH # 1.4 10^3/uL (1.5-5.0); LYMPH % 13.9 % (24.0-44.0); MEAN CORPUSCULAR HEMOGLOBIN 27.8 pg (27.0-33.0); MEAN CORPUSCULAR HGB CONC 30.9 g/dl (32.0-36.5); MEAN CORPUSCULAR VOLUME 89.9 fl (80.0-96.0); MONO # 0.8 10^3/uL (0.0-0.8); MONO % 8.2 % (2.0-8.0); NEUTROPHILS # 7.4 10^3/uL (1.5-8.5); NEUTROPHILS % 72.4 % (36.0-66.0); PLATELET COUNT, AUTOMATED 406 10^3/uL (150-450); RED BLOOD COUNT 3.96 10^6/uL (4.00-5.40); WHITE BLOOD COUNT 10.2 10^3/uL (4.0-10.0)
[2022-08-10 09:45] LABS: BLOOD UREA NITROGEN 12 MG/DL (9-23); CALCIUM LEVEL 8.6 MG/DL (8.3-10.6); CARBON DIOXIDE LEVEL 26 MMOL/L (20-31); CHLORIDE LEVEL 108 MMOL/L (98-107); CREATININE FOR GFR 0.59 MG/DL (0.55-1.30); GLOMERULAR FILTRATION RATE > 60.0 (>39); GLUCOSE, FASTING 71 MG/DL (74-106); POTASSIUM SERUM 4.1 MMOL/L (3.5-5.1); SODIUM LEVEL 140 MMOL/L (136-145)
[2022-08-10] MEDS: IBUPROFEN 200MG TAB PO PRN (10:11)
[2022-08-10] MEDS: CEFDINIR 300 MG CAP (OMNICEF) PO SCH ×2 (12:14→20:27)
[2022-08-10 14:00] VITALS: BP 164/72
[2022-08-10 20:00] VITALS: BP 130/60
[2022-08-10] MEDS: ASPIRIN ENTERIC 325MG TAB PO SCH (20:27)
[2022-08-10] MEDS: SIMVASTATIN 20 MG TAB PO SCH (20:27)
[2022-08-10] MEDS: oxyBUTYnin *DITROPAN XL* 5 MG TABCR PO SCH (20:27)
[2022-08-10] MEDS: RAMELTEON 8 MG TAB (ROZEREM) PO SCH (20:27)
[2022-08-10] MEDS: LEVEMIR (INSULIN DETEMIR) 1 UNITS/0.01ML SC SCH (20:27)
[2022-08-10] MEDS: SENNA 8.6 MG TAB (SENOKOT) PO SCH (20:28)
[2022-08-10] MEDS: LATANOPROST 0.005% OPHTH SOLN 2.5 ML OU SCH (20:29)
[2022-08-11] MEDS: ACETAMINOPHEN 650MG ER TAB (TYLENOL ARTHRITIS) PO SCH ×3 (05:59→20:45)
[2022-08-11 06:01] VITALS: BP 141/60
[2022-08-11] MEDS: DOCUSATE SODIUM 100MG CAPSULE PO SCH ×2 (09:00→20:46)
[2022-08-11] MEDS: INSULIN LISPRO (NovoLOG) PER UNIT SC SCH ×4 (09:02→20:47)
[2022-08-11] MEDS: GABAPENTIN 100 MG CAP PO SCH ×3 (09:03→20:46)
[2022-08-11] MEDS: CEFDINIR 300 MG CAP (OMNICEF) PO SCH ×2 (09:03→20:46)
[2022-08-11] MEDS: LOSARTAN 50MG TABLET PO SCH (09:03)
[2022-08-11] MEDS: guaiFENesin ER 600 MG TAB PO SCH ×2 (09:03→20:46)
[2022-08-11] MEDS: ESCITALOPRAM OXALATE 10 MG TAB (LEXAPRO) PO SCH (09:03)
[2022-08-11] MEDS: PANTOPRAZOLE 40MG TAB (PROTONIX) PO SCH (09:04)
[2022-08-11] MEDS: HYDROXYCHLOROQUINE 200 MG TAB PO SCH ×2 (09:04→20:46)
[2022-08-11] MEDS: ENOXAPARIN 40MG/0.4ML SYRINGE (J1650 PER 10MG) SC SCH (09:05)
[2022-08-11] MEDS: CHOLESTYRAMINE 4GM PWD PKT PO SCH ×2 (09:05→20:46)
[2022-08-11] MEDS: FLUTICASONE PROP 0.05% NASAL SPRAY 16 GM (FLONASE) NARES SCH ×2 (09:06→20:48)
[2022-08-11] MEDS: REMEDY PHYTOPLEX Z-GUARD PASTE 113GM TUBE (FROM STOREROOM PRODUCT) TOP SCH ×3 (09:07→20:49)
[2022-08-11] MEDS: NYSTATIN 100,000 UNITS/GM TOPICAL PWD 15GM TOP SCH ×2 (09:07→20:49)
[2022-08-11] MEDS: COMBIVENT RESPIMAT 100-20MCG INHALER 4GM INH SCH ×3 (09:20→19:59)
[2022-08-11] MEDS: IBUPROFEN 200MG TAB PO PRN (12:24)
[2022-08-11 14:00] VITALS: BP 161/68
[2022-08-11 20:00] VITALS: BP 156/66
[2022-08-11] MEDS: SIMVASTATIN 20 MG TAB PO SCH (20:46)
[2022-08-11] MEDS: RAMELTEON 8 MG TAB (ROZEREM) PO SCH (20:46)
[2022-08-11] MEDS: oxyBUTYnin *DITROPAN XL* 5 MG TABCR PO SCH (20:46)
[2022-08-11] MEDS: ASPIRIN ENTERIC 325MG TAB PO SCH (20:46)
[2022-08-11] MEDS: LEVEMIR (INSULIN DETEMIR) 1 UNITS/0.01ML SC SCH (20:46)
[2022-08-11] MEDS: SENNA 8.6 MG TAB (SENOKOT) PO SCH (20:47)
[2022-08-11] MEDS: LATANOPROST 0.005% OPHTH SOLN 2.5 ML OU SCH (20:48)
[2022-08-12] MEDS: ACETAMINOPHEN 650MG ER TAB (TYLENOL ARTHRITIS) PO SCH ×3 (05:43→20:27)
[2022-08-12 06:00] VITALS: BP 137/63
[2022-08-12] MEDS: INSULIN LISPRO (NovoLOG) PER UNIT SC SCH ×4 (07:30→21:00)
[2022-08-12] MEDS: COMBIVENT RESPIMAT 100-20MCG INHALER 4GM INH SCH ×3 (08:00→20:00)
[2022-08-12] MEDS: LOSARTAN 50MG TABLET PO SCH (08:50)
[2022-08-12] MEDS: GABAPENTIN 100 MG CAP PO SCH ×3 (08:50→20:27)
[2022-08-12] MEDS: guaiFENesin ER 600 MG TAB PO SCH ×2 (08:50→20:28)
[2022-08-12] MEDS: ESCITALOPRAM OXALATE 10 MG TAB (LEXAPRO) PO SCH (08:50)
[2022-08-12] MEDS: CEFDINIR 300 MG CAP (OMNICEF) PO SCH ×2 (08:50→20:28)
[2022-08-12] MEDS: ENOXAPARIN 40MG/0.4ML SYRINGE (J1650 PER 10MG) SC SCH (08:51)
[2022-08-12] MEDS: CHOLESTYRAMINE 4GM PWD PKT PO SCH ×2 (08:51→20:27)
[2022-08-12] MEDS: PANTOPRAZOLE 40MG TAB (PROTONIX) PO SCH (08:51)
[2022-08-12] MEDS: NYSTATIN 100,000 UNITS/GM TOPICAL PWD 15GM TOP SCH ×2 (08:52→20:30)
[2022-08-12] MEDS: REMEDY PHYTOPLEX Z-GUARD PASTE 113GM TUBE (FROM STOREROOM PRODUCT) TOP SCH ×3 (08:52→20:30)
[2022-08-12] MEDS: FLUTICASONE PROP 0.05% NASAL SPRAY 16 GM (FLONASE) NARES SCH ×2 (08:52→21:00)
[2022-08-12] MEDS: HYDROXYCHLOROQUINE 200 MG TAB PO SCH ×2 (08:52→20:28)
[2022-08-12] MEDS: DOCUSATE SODIUM 100MG CAPSULE PO SCH ×2 (08:53→21:00)
[2022-08-12 14:00] VITALS: BP 148/59
[2022-08-12 20:00] VITALS: BP 130/50
[2022-08-12] MEDS: LEVEMIR (INSULIN DETEMIR) 1 UNITS/0.01ML SC SCH (20:27)
[2022-08-12] MEDS: RAMELTEON 8 MG TAB (ROZEREM) PO SCH (20:28)
[2022-08-12] MEDS: ASPIRIN ENTERIC 325MG TAB PO SCH (20:28)
[2022-08-12] MEDS: SIMVASTATIN 20 MG TAB PO SCH (20:28)
[2022-08-12] MEDS: oxyBUTYnin *DITROPAN XL* 5 MG TABCR PO SCH (20:28)
[2022-08-12] MEDS: LATANOPROST 0.005% OPHTH SOLN 2.5 ML OU SCH (20:29)
[2022-08-12] MEDS: SENNA 8.6 MG TAB (SENOKOT) PO SCH (21:00)
[2022-08-13 06:00] VITALS: BP 128/60
[2022-08-13 06:02] LABS: BASO # 0.1 10^3/uL (0.0-0.2); BASO % 0.5 % (0.0-1.0); EOS # 0.3 10^3/uL (0.0-0.5); EOS % 2.9 % (0.0-3.0); HEMATOCRIT 32.1 % (36.0-47.0); HEMOGLOBIN 9.9 g/dl (12.0-15.5); LYMPH # 1.6 10^3/uL (1.5-5.0); LYMPH % 15.3 % (24.0-44.0); MEAN CORPUSCULAR HGB CONC 30.8 g/dl (32.0-36.5); MEAN CORPUSCULAR VOLUME 90.9 fl (80.0-96.0); MONO % 9.2 % (2.0-8.0); NEUTROPHILS # 7.4 10^3/uL (1.5-8.5); NEUTROPHILS % 70.8 % (36.0-66.0); PLATELET COUNT, AUTOMATED 349 10^3/uL (150-450); RED BLOOD COUNT 3.53 10^6/uL (4.00-5.40); WHITE BLOOD COUNT 10.4 10^3/uL (4.0-10.0)
[2022-08-13] MEDS: ACETAMINOPHEN 650MG ER TAB (TYLENOL ARTHRITIS) PO SCH ×3 (06:06→20:39)
[2022-08-13] MEDS: COMBIVENT RESPIMAT 100-20MCG INHALER 4GM INH SCH ×3 (06:18→20:00)
[2022-08-13 06:33] LABS: BLOOD UREA NITROGEN 15 MG/DL (9-23); CALCIUM LEVEL 8.7 MG/DL (8.3-10.6); CARBON DIOXIDE LEVEL 23 MMOL/L (20-31); CHLORIDE LEVEL 111 MMOL/L (98-107); GLOMERULAR FILTRATION RATE > 60.0 (>39); GLUCOSE, FASTING 71 MG/DL (74-106); POTASSIUM SERUM 4.5 MMOL/L (3.5-5.1); SODIUM LEVEL 141 MMOL/L (136-145)
[2022-08-13] MEDS: INSULIN LISPRO (NovoLOG) PER UNIT SC SCH ×4 (07:30→20:34)
[2022-08-13] MEDS: REMEDY PHYTOPLEX Z-GUARD PASTE 113GM TUBE (FROM STOREROOM PRODUCT) TOP SCH ×3 (09:00→20:35)
[2022-08-13] MEDS: NYSTATIN 100,000 UNITS/GM TOPICAL PWD 15GM TOP SCH ×2 (09:00→20:35)
[2022-08-13] MEDS: FLUTICASONE PROP 0.05% NASAL SPRAY 16 GM (FLONASE) NARES SCH ×2 (09:00→20:34)
[2022-08-13] MEDS: GABAPENTIN 100 MG CAP PO SCH ×3 (09:18→20:32)
[2022-08-13] MEDS: LOSARTAN 50MG TABLET PO SCH (09:18)
[2022-08-13] MEDS: ENOXAPARIN 40MG/0.4ML SYRINGE (J1650 PER 10MG) SC SCH (09:19)
[2022-08-13] MEDS: ESCITALOPRAM OXALATE 10 MG TAB (LEXAPRO) PO SCH (09:19)
[2022-08-13] MEDS: DOCUSATE SODIUM 100MG CAPSULE PO SCH ×2 (09:19→20:33)
[2022-08-13] MEDS: CHOLESTYRAMINE 4GM PWD PKT PO SCH ×2 (09:19→20:33)
[2022-08-13] MEDS: PANTOPRAZOLE 40MG TAB (PROTONIX) PO SCH (09:19)
[2022-08-13] MEDS: guaiFENesin ER 600 MG TAB PO SCH ×2 (09:19→20:33)
[2022-08-13] MEDS: HYDROXYCHLOROQUINE 200 MG TAB PO SCH ×2 (09:20→20:33)
[2022-08-13] MEDS: IBUPROFEN 200MG TAB PO PRN ×2 (13:13→20:39)
[2022-08-13 14:00] VITALS: BP 126/58
[2022-08-13 20:00] VITALS: BP 154/60
[2022-08-13] MEDS: RAMELTEON 8 MG TAB (ROZEREM) PO SCH (20:32)
[2022-08-13] MEDS: ASPIRIN ENTERIC 325MG TAB PO SCH (20:33)
[2022-08-13] MEDS: oxyBUTYnin *DITROPAN XL* 5 MG TABCR PO SCH (20:33)
[2022-08-13] MEDS: SIMVASTATIN 20 MG TAB PO SCH (20:33)
[2022-08-13] MEDS: SENNA 8.6 MG TAB (SENOKOT) PO SCH (20:33)
[2022-08-13] MEDS: LATANOPROST 0.005% OPHTH SOLN 2.5 ML OU SCH (20:34)
[2022-08-13] MEDS: LEVEMIR (INSULIN DETEMIR) 1 UNITS/0.01ML SC SCH (20:34)
[2022-08-14] MEDS: ACETAMINOPHEN 650MG ER TAB (TYLENOL ARTHRITIS) PO SCH ×3 (05:49→21:26)
[2022-08-14 06:00] VITALS: BP 145/61
[2022-08-14] MEDS: INSULIN LISPRO (NovoLOG) PER UNIT SC SCH ×4 (07:30→20:45)
[2022-08-14] MEDS: COMBIVENT RESPIMAT 100-20MCG INHALER 4GM INH SCH ×3 (07:36→18:58)
[2022-08-14] MEDS: NYSTATIN 100,000 UNITS/GM TOPICAL PWD 15GM TOP SCH ×2 (09:00→21:28)
[2022-08-14] MEDS: REMEDY PHYTOPLEX Z-GUARD PASTE 113GM TUBE (FROM STOREROOM PRODUCT) TOP SCH ×3 (09:00→21:28)
[2022-08-14] MEDS: FLUTICASONE PROP 0.05% NASAL SPRAY 16 GM (FLONASE) NARES SCH ×3 (09:00→21:27)
[2022-08-14] MEDS: guaiFENesin ER 600 MG TAB PO SCH ×2 (09:47→21:26)
[2022-08-14] MEDS: PANTOPRAZOLE 40MG TAB (PROTONIX) PO SCH (09:47)
[2022-08-14] MEDS: CHOLESTYRAMINE 4GM PWD PKT PO SCH ×2 (09:47→21:24)
[2022-08-14] MEDS: ENOXAPARIN 40MG/0.4ML SYRINGE (J1650 PER 10MG) SC SCH (09:47)
[2022-08-14] MEDS: ESCITALOPRAM OXALATE 10 MG TAB (LEXAPRO) PO SCH (09:47)
[2022-08-14] MEDS: HYDROXYCHLOROQUINE 200 MG TAB PO SCH ×2 (09:47→21:25)
[2022-08-14] MEDS: GABAPENTIN 100 MG CAP PO SCH ×3 (09:47→21:26)
[2022-08-14] MEDS: DOCUSATE SODIUM 100MG CAPSULE PO SCH ×2 (09:47→21:26)
[2022-08-14] MEDS: LOSARTAN 50MG TABLET PO SCH (09:51)
[2022-08-14 14:00] VITALS: BP 136/61
[2022-08-14] MEDS: LACTOBACILLUS ACIDOPHILUS CAP (BACID) PO SCH (17:36)
[2022-08-14 20:00] VITALS: BP 135/59
[2022-08-14] MEDS: SIMVASTATIN 20 MG TAB PO SCH (21:25)
[2022-08-14] MEDS: oxyBUTYnin *DITROPAN XL* 5 MG TABCR PO SCH (21:26)
[2022-08-14] MEDS: RAMELTEON 8 MG TAB (ROZEREM) PO SCH (21:26)
[2022-08-14] MEDS: SENNA 8.6 MG TAB (SENOKOT) PO SCH (21:26)
[2022-08-14] MEDS: ASPIRIN ENTERIC 325MG TAB PO SCH (21:26)
[2022-08-14] MEDS: LEVEMIR (INSULIN DETEMIR) 1 UNITS/0.01ML SC SCH (21:27)
[2022-08-14] MEDS: LATANOPROST 0.005% OPHTH SOLN 2.5 ML OU SCH (21:27)
[2022-08-15] MEDS: ACETAMINOPHEN 650MG ER TAB (TYLENOL ARTHRITIS) PO SCH ×3 (05:59→21:53)
[2022-08-15 06:00] VITALS: BP 132/60
[2022-08-15] MEDS: COMBIVENT RESPIMAT 100-20MCG INHALER 4GM INH SCH ×3 (07:25→20:00)
[2022-08-15] MEDS: PANTOPRAZOLE 40MG TAB (PROTONIX) PO SCH (08:58)
[2022-08-15] MEDS: ENOXAPARIN 40MG/0.4ML SYRINGE (J1650 PER 10MG) SC SCH (08:58)
[2022-08-15] MEDS: DOCUSATE SODIUM 100MG CAPSULE PO SCH ×2 (08:58→09:00)
[2022-08-15] MEDS: LOSARTAN 50MG TABLET PO SCH (08:58)
[2022-08-15] MEDS: LACTOBACILLUS ACIDOPHILUS CAP (BACID) PO SCH ×2 (08:58→17:14)
[2022-08-15] MEDS: GABAPENTIN 100 MG CAP PO SCH ×3 (08:58→21:53)
[2022-08-15] MEDS: HYDROXYCHLOROQUINE 200 MG TAB PO SCH ×2 (08:59→21:53)
[2022-08-15] MEDS: guaiFENesin ER 600 MG TAB PO SCH ×2 (08:59→21:00)
[2022-08-15] MEDS: ESCITALOPRAM OXALATE 10 MG TAB (LEXAPRO) PO SCH (08:59)
[2022-08-15] MEDS: INSULIN LISPRO (NovoLOG) PER UNIT SC SCH ×4 (09:00→21:00)
[2022-08-15] MEDS: FLUTICASONE PROP 0.05% NASAL SPRAY 16 GM (FLONASE) NARES SCH ×2 (09:00→21:00)
[2022-08-15] MEDS: CHOLESTYRAMINE 4GM PWD PKT PO SCH ×2 (09:04→21:54)
[2022-08-15] MEDS: NYSTATIN 100,000 UNITS/GM TOPICAL PWD 15GM TOP SCH ×2 (09:05→21:55)
[2022-08-15] MEDS: REMEDY PHYTOPLEX Z-GUARD PASTE 113GM TUBE (FROM STOREROOM PRODUCT) TOP SCH ×3 (09:05→22:00)
[2022-08-15 10:52] LABS: BASO % 0.3 % (0.0-1.0); EOS # 0.2 10^3/uL (0.0-0.5); EOS % 1.5 % (0.0-3.0); HEMATOCRIT 34.9 % (36.0-47.0); HEMOGLOBIN 10.6 g/dl (12.0-15.5); LYMPH # 1.1 10^3/uL (1.5-5.0); LYMPH % 8.5 % (24.0-44.0); MEAN CORPUSCULAR HEMOGLOBIN 27.9 pg (27.0-33.0); MEAN CORPUSCULAR HGB CONC 30.4 g/dl (32.0-36.5); MEAN CORPUSCULAR VOLUME 91.8 fl (80.0-96.0); MONO % 7.9 % (2.0-8.0); NEUTROPHILS # 10.6 10^3/uL (1.5-8.5); NEUTROPHILS % 80.9 % (36.0-66.0); PLATELET COUNT, AUTOMATED 348 10^3/uL (150-450); WHITE BLOOD COUNT 13.1 10^3/uL (4.0-10.0)
[2022-08-15 11:13] LABS: BLOOD UREA NITROGEN 16 MG/DL (9-23); CALCIUM LEVEL 8.9 MG/DL (8.3-10.6); CARBON DIOXIDE LEVEL 22 MMOL/L (20-31); CHLORIDE LEVEL 108 MMOL/L (98-107); CREATININE FOR GFR 0.73 MG/DL (0.55-1.30); GLOMERULAR FILTRATION RATE > 60.0 (>39); GLUCOSE, FASTING 103 MG/DL (74-106); POTASSIUM SERUM 4.9 MMOL/L (3.5-5.1); SODIUM LEVEL 137 MMOL/L (136-145)
[2022-08-15 14:00] VITALS: BP 118/46
[2022-08-15 19:52] VITALS: BP 138/58
[2022-08-15] MEDS: SENNA 8.6 MG TAB (SENOKOT) PO SCH (21:00)
[2022-08-15] MEDS ORDERED: DOCUSATE SODIUM 100MG CAPSULE PO PRN (21:00)
[2022-08-15] MEDS: ASPIRIN ENTERIC 325MG TAB PO SCH (21:53)
[2022-08-15] MEDS: SIMVASTATIN 20 MG TAB PO SCH (21:53)
[2022-08-15] MEDS: RAMELTEON 8 MG TAB (ROZEREM) PO SCH (21:53)
[2022-08-15] MEDS: oxyBUTYnin *DITROPAN XL* 5 MG TABCR PO SCH (21:53)
[2022-08-15] MEDS: LATANOPROST 0.005% OPHTH SOLN 2.5 ML OU SCH (21:55)
[2022-08-15] MEDS: LEVEMIR (INSULIN DETEMIR) 1 UNITS/0.01ML SC SCH (21:55)
[2022-08-16 06:07] VITALS: BP 158/70
[2022-08-16] MEDS: ACETAMINOPHEN 650MG ER TAB (TYLENOL ARTHRITIS) PO SCH ×3 (06:16→20:54)
[2022-08-16] MEDS: COMBIVENT RESPIMAT 100-20MCG INHALER 4GM INH SCH ×3 (07:53→20:00)
[2022-08-16] MEDS: CHOLESTYRAMINE 4GM PWD PKT PO SCH ×2 (08:52→20:51)
[2022-08-16] MEDS: INSULIN LISPRO (NovoLOG) PER UNIT SC SCH ×4 (08:52→20:52)
[2022-08-16] MEDS: ESCITALOPRAM OXALATE 10 MG TAB (LEXAPRO) PO SCH (08:52)
[2022-08-16] MEDS: GABAPENTIN 100 MG CAP PO SCH (08:53)
[2022-08-16] MEDS: PANTOPRAZOLE 40MG TAB (PROTONIX) PO SCH (08:54)
[2022-08-16] MEDS: HYDROXYCHLOROQUINE 200 MG TAB PO SCH ×2 (08:54→20:52)
[2022-08-16] MEDS: LOSARTAN 50MG TABLET PO SCH (08:55)
[2022-08-16] MEDS: guaiFENesin ER 600 MG TAB PO SCH ×2 (08:55→20:52)
[2022-08-16] MEDS: FLUTICASONE PROP 0.05% NASAL SPRAY 16 GM (FLONASE) NARES SCH ×2 (08:56→20:53)
[2022-08-16] MEDS: ENOXAPARIN 40MG/0.4ML SYRINGE (J1650 PER 10MG) SC SCH (08:56)
[2022-08-16] MEDS: REMEDY PHYTOPLEX Z-GUARD PASTE 113GM TUBE (FROM STOREROOM PRODUCT) TOP SCH ×3 (08:57→20:54)
[2022-08-16] MEDS: NYSTATIN 100,000 UNITS/GM TOPICAL PWD 15GM TOP SCH ×2 (08:57→20:53)
[2022-08-16] MEDS: LACTOBACILLUS ACIDOPHILUS CAP (BACID) PO SCH ×2 (08:59→17:42)
[2022-08-16 12:05] LABS: BASO % 0.3 % (0.0-1.0); EOS # 0.2 10^3/uL (0.0-0.5); EOS % 1.6 % (0.0-3.0); HEMATOCRIT 33.2 % (36.0-47.0); HEMOGLOBIN 10.1 g/dl (12.0-15.5); LYMPH # 1.2 10^3/uL (1.5-5.0); LYMPH % 10.6 % (24.0-44.0); MEAN CORPUSCULAR HEMOGLOBIN 27.6 pg (27.0-33.0); MEAN CORPUSCULAR HGB CONC 30.4 g/dl (32.0-36.5); MEAN CORPUSCULAR VOLUME 90.7 fl (80.0-96.0); MONO % 9.1 % (2.0-8.0); NEUTROPHILS # 8.7 10^3/uL (1.5-8.5); NEUTROPHILS % 77.5 % (36.0-66.0); PLATELET COUNT, AUTOMATED 290 10^3/uL (150-450); RED BLOOD COUNT 3.66 10^6/uL (4.00-5.40); WHITE BLOOD COUNT 11.2 10^3/uL (4.0-10.0)
[2022-08-16 14:00] VITALS: BP 141/60
[2022-08-16 20:00] VITALS: BP 128/50
[2022-08-16] MEDS: IBUPROFEN 200MG TAB PO PRN (20:51)
[2022-08-16] MEDS: ASPIRIN ENTERIC 325MG TAB PO SCH (20:51)
[2022-08-16] MEDS: SIMVASTATIN 20 MG TAB PO SCH (20:51)
[2022-08-16] MEDS: RAMELTEON 8 MG TAB (ROZEREM) PO SCH (20:51)
[2022-08-16] MEDS: SENNA 8.6 MG TAB (SENOKOT) PO SCH (20:52)
[2022-08-16] MEDS: oxyBUTYnin *DITROPAN XL* 5 MG TABCR PO SCH (20:52)
[2022-08-16] MEDS: LEVEMIR (INSULIN DETEMIR) 1 UNITS/0.01ML SC SCH (20:52)
[2022-08-16] MEDS: LATANOPROST 0.005% OPHTH SOLN 2.5 ML OU SCH (20:53)
[2022-08-17] MEDS: traMADol 50 MG TAB PO PRN ×2 (00:26→06:32)
[2022-08-17] MEDS: ACETAMINOPHEN 650MG ER TAB (TYLENOL ARTHRITIS) PO SCH ×3 (05:34→21:09)
[2022-08-17 06:00] VITALS: BP 140/58
[2022-08-17 06:46] LABS: BASO % 0.4 % (0.0-1.0); EOS # 0.2 10^3/uL (0.0-0.5); EOS % 3.1 % (0.0-3.0); HEMATOCRIT 29.9 % (36.0-47.0); LYMPH # 1.2 10^3/uL (1.5-5.0); LYMPH % 16.6 % (24.0-44.0); MEAN CORPUSCULAR HEMOGLOBIN 27.1 pg (27.0-33.0); MEAN CORPUSCULAR HGB CONC 30.1 g/dl (32.0-36.5); MEAN CORPUSCULAR VOLUME 90.1 fl (80.0-96.0); MONO # 0.8 10^3/uL (0.0-0.8); MONO % 11.5 % (2.0-8.0); NEUTROPHILS # 4.8 10^3/uL (1.5-8.5); NEUTROPHILS % 67.8 % (36.0-66.0); PLATELET COUNT, AUTOMATED 257 10^3/uL (150-450); RED BLOOD COUNT 3.32 10^6/uL (4.00-5.40); WHITE BLOOD COUNT 7.1 10^3/uL (4.0-10.0)
[2022-08-17 07:20] LABS: BLOOD UREA NITROGEN 14 MG/DL (9-23); CALCIUM LEVEL 8.7 MG/DL (8.3-10.6); CARBON DIOXIDE LEVEL 21 MMOL/L (20-31); CHLORIDE LEVEL 111 MMOL/L (98-107); GLOMERULAR FILTRATION RATE > 60.0 (>39); GLUCOSE, FASTING 133 MG/DL (74-106); POTASSIUM SERUM 4.6 MMOL/L (3.5-5.1); SODIUM LEVEL 140 MMOL/L (136-145)
[2022-08-17] MEDS: COMBIVENT RESPIMAT 100-20MCG INHALER 4GM INH SCH ×3 (08:00→20:00)
[2022-08-17] MEDS: INSULIN LISPRO (NovoLOG) PER UNIT SC SCH ×4 (08:57→21:00)
[2022-08-17] MEDS: LACTOBACILLUS ACIDOPHILUS CAP (BACID) PO SCH ×2 (08:57→17:12)
[2022-08-17] MEDS: CHOLESTYRAMINE 4GM PWD PKT PO SCH ×2 (08:57→21:08)
[2022-08-17] MEDS: ESCITALOPRAM OXALATE 10 MG TAB (LEXAPRO) PO SCH (08:57)
[2022-08-17] MEDS: HYDROXYCHLOROQUINE 200 MG TAB PO SCH ×2 (08:57→21:09)
[2022-08-17] MEDS: PANTOPRAZOLE 40MG TAB (PROTONIX) PO SCH (08:57)
[2022-08-17] MEDS: guaiFENesin ER 600 MG TAB PO SCH ×2 (08:57→21:09)
[2022-08-17] MEDS: NYSTATIN 100,000 UNITS/GM TOPICAL PWD 15GM TOP SCH ×2 (08:58→21:09)
[2022-08-17] MEDS: ENOXAPARIN 40MG/0.4ML SYRINGE (J1650 PER 10MG) SC SCH (08:58)
[2022-08-17] MEDS: FLUTICASONE PROP 0.05% NASAL SPRAY 16 GM (FLONASE) NARES SCH ×2 (08:58→21:10)
[2022-08-17] MEDS: REMEDY PHYTOPLEX Z-GUARD PASTE 113GM TUBE (FROM STOREROOM PRODUCT) TOP SCH ×3 (09:00→21:00)
[2022-08-17] MEDS: LOSARTAN 50MG TABLET PO SCH (09:01)
[2022-08-17] MEDS ORDERED: MICR1TAB5 PO (09:35)
[2022-08-17] MEDS ORDERED: LEXA1TAB PO (09:35)
[2022-08-17] MEDS ORDERED: PANT40TA29 PO (09:35)
[2022-08-17] MEDS ORDERED: LANTINJ4 INJ (09:35)
[2022-08-17] MEDS ORDERED: SIMV20TA22 PO (09:35)
[2022-08-17] MEDS ORDERED: DITR5TAB PO (09:35)
[2022-08-17] MEDS ORDERED: ASPI325T49 PO (09:35)
[2022-08-17] MEDS ORDERED: RAME8TAB2 PO (09:35)
[2022-08-17] MEDS ORDERED: HYDR200T3 PO (09:35)
[2022-08-17] MEDS ORDERED: LOSA50TA28 PO (09:35)
[2022-08-17] MEDS ORDERED: LOVE1INJ SC (09:36)
[2022-08-17 14:00] VITALS: BP 141/61
[2022-08-17 19:58] VITALS: BP 136/58
[2022-08-17] MEDS: SENNA 8.6 MG TAB (SENOKOT) PO SCH (21:08)
[2022-08-17] MEDS: SIMVASTATIN 20 MG TAB PO SCH (21:08)
[2022-08-17] MEDS: oxyBUTYnin *DITROPAN XL* 5 MG TABCR PO SCH (21:09)
[2022-08-17] MEDS: ASPIRIN ENTERIC 325MG TAB PO SCH (21:09)
[2022-08-17] MEDS: RAMELTEON 8 MG TAB (ROZEREM) PO SCH (21:09)
[2022-08-17] MEDS: LATANOPROST 0.005% OPHTH SOLN 2.5 ML OU SCH (21:10)
[2022-08-17] MEDS: LEVEMIR (INSULIN DETEMIR) 1 UNITS/0.01ML SC SCH (21:10)
[2022-08-18] MEDS: traMADol 50 MG TAB PO PRN (01:46)
[2022-08-18 06:16] VITALS: BP 146/65
[2022-08-18] MEDS: ACETAMINOPHEN 650MG ER TAB (TYLENOL ARTHRITIS) PO SCH (06:16)
[2022-08-18] MEDS: COMBIVENT RESPIMAT 100-20MCG INHALER 4GM INH SCH (07:59)
[2022-08-18 08:37] VITALS: BP 135/62
[2022-08-18] MEDS: PANTOPRAZOLE 40MG TAB (PROTONIX) PO SCH (08:37)
[2022-08-18] MEDS: guaiFENesin ER 600 MG TAB PO SCH (08:37)
[2022-08-18] MEDS: LOSARTAN 50MG TABLET PO SCH (08:37)
[2022-08-18] MEDS: LACTOBACILLUS ACIDOPHILUS CAP (BACID) PO SCH (08:37)
[2022-08-18] MEDS: ESCITALOPRAM OXALATE 10 MG TAB (LEXAPRO) PO SCH (08:37)
[2022-08-18] MEDS: REMEDY PHYTOPLEX Z-GUARD PASTE 113GM TUBE (FROM STOREROOM PRODUCT) TOP SCH (08:38)
[2022-08-18] MEDS: HYDROXYCHLOROQUINE 200 MG TAB PO SCH (08:38)
[2022-08-18] MEDS: ENOXAPARIN 40MG/0.4ML SYRINGE (J1650 PER 10MG) SC SCH (08:38)
[2022-08-18] MEDS: FLUTICASONE PROP 0.05% NASAL SPRAY 16 GM (FLONASE) NARES SCH (08:38)
[2022-08-18] MEDS: CHOLESTYRAMINE 4GM PWD PKT PO SCH (08:38)
[2022-08-18] MEDS: NYSTATIN 100,000 UNITS/GM TOPICAL PWD 15GM TOP SCH (08:38)
[2022-08-18] MEDS: INSULIN LISPRO (NovoLOG) PER UNIT SC SCH ×2 (08:41→12:00)
== END 2022-08-18 13:15 | disposition home health service (06) | DRG 560 ==
LOC: M PM&R 14:55
PROVIDERS: ADMIT Physical Medicine & Rehabilitation; ATTEND Physical Medicine & Rehabilitation
DX: S82.831D Other fracture of upper and lower end of right fibula, subsequent encounter for closed fracture with routine healing (principal); J84.9 Interstitial pulmonary disease, unspecified; G47.33 Obstructive sleep apnea (adult) (pediatric); R26.89 Other abnormalities of gait and mobility; I10 Essential (primary) hypertension; I48.91 Unspecified atrial fibrillation; N32.9 Bladder disorder, unspecified; Z95.0 Presence of cardiac pacemaker; E11.9 Type 2 diabetes mellitus without complications; E78.5 Hyperlipidemia, unspecified; F41.9 Anxiety disorder, unspecified; F32.A Depression, unspecified; H40.9 Unspecified glaucoma; M81.0 Age-related osteoporosis without current pathological fracture; R29.6 Repeated falls; Z74.09 Other reduced mobility; Z74.1 Need for assistance with personal care; Z90.49 Acquired absence of other specified parts of digestive tract; M06.9 Rheumatoid arthritis, unspecified; Z79.4 Long term (current) use of insulin; Z79.899 Other long term (current) drug therapy; Z79.82 Long term (current) use of aspirin; Z88.5 Allergy status to narcotic agent; Z88.8 Allergy status to other drugs, medicaments and biological substances

== ENCOUNTER → 2022-08-23 | Outpatient (CLI) | payer MEDICARE, OTHER ==
[~2022-08-23] MED LIST changes: +DITR5TAB PO; -FLUT50SP17 NARES; +FLUTISP NARES; +LOVE1INJ SC; +PANT40TA29 PO; +RAME8TAB2 PO
== END ==
LOC: M SOG 13:46
PROVIDERS: ATTEND Physician Assistant
DX: M25.571 Pain in right ankle and joints of right foot (principal)

== ENCOUNTER → 2022-09-13 | Outpatient (CLI) | payer MEDICARE, OTHER ==
[~2022-09-13] MED LIST changes: +FLUT50SP17 NARES; -FLUTISP NARES
== END ==
LOC: M SOG 09:43
PROVIDERS: ATTEND Student in an Organized Health Care Education/Training Program
DX: Z47.89 Encounter for other orthopedic aftercare (principal); S82.841D Displaced bimalleolar fracture of right lower leg, subsequent encounter for closed fracture with routine healing

== ENCOUNTER → 2022-10-25 | Outpatient (CLI) | payer MEDICARE, OTHER | LOC: M SOG 08:43 | PROVIDERS: ATTEND Student in an Organized Health Care Education/Training Program | DX: Z47.89 Encounter for other orthopedic aftercare (principal); S82.841D Displaced bimalleolar fracture of right lower leg, subsequent encounter for closed fracture with routine healing ==

== ENCOUNTER → 2023-01-24 | Outpatient (CLI) | payer MEDICARE, OTHER ==
[~2023-01-24] MED LIST changes: -HYDR200T3 PO; +HYDR200T46 PO
== END ==
LOC: M SOG 08:11
PROVIDERS: ATTEND Orthopaedic Surgery
DX: S82.841D Displaced bimalleolar fracture of right lower leg, subsequent encounter for closed fracture with routine healing (principal); Y93.9 Activity, unspecified; Y92.9 Unspecified place or not applicable